=== PATIENT | female | born 1980 | race Caucasian/White ===

== ENCOUNTER 2016-07-31 08:01 | Inpatient (IN) | payer MEDICAID ==
[~2016-07-31] VITALS: Ht 165.1 cm; Wt 100.9 kg
[~2016-07-31 08:01] MED LIST: ESMOLOL 100 MG/10 ML VL IV ONE; LIDOCAINE 2% SYR 5 ML IV ONE; PROPOFOL 50ML PER ML IV ONE
[2016-07-31] MEDS ORDERED: METHYLPRED SOD SUCC 125 MG/2 ML VIAL ONE (08:26)
[2016-07-31] MEDS ORDERED: DUONEB INH ONE ×4 (08:32→10:23)
[2016-07-31] MEDS ORDERED: ACETAMINOPHEN 325 MG TAB ONE (10:10)
[2016-07-31] MEDS ORDERED: SODIUM CHLORIDE 0.9% 1,000 ML ONE ×2 (10:22→10:43)
[2016-07-31] MEDS ORDERED: PIPERACIL/TAZO 4.5GM/100ML 100 ML IV ONE (10:45)
[2016-07-31] MEDS ORDERED: VANCOMYCIN 2,000 MG in SODIUM CHLORIDE 0.9% 500 ML IV ONE (10:45)
[2016-07-31] MEDS ORDERED: SALINE FLUSH 10 ML FLUSH PRN (10:50)
[2016-07-31] MEDS ORDERED: SODIUM CHLORIDE 0.9% 1,000 ML IV ONE ×3 (10:50→16:00)
[2016-07-31 12:30] VITALS: BP_SYST 110; BP_SYST 120; RESP 20; TEMP 98.1; Ht 165.1 cm; Wt 100.9 kg
[2016-07-31] MEDS ORDERED: MISSING DOSE XX ONE (12:30)
[2016-07-31] MEDS ORDERED: PNEUMO VAC 25 MCG/0.5 ML VL IM.VACC ONE (13:10)
[2016-07-31] MEDS ORDERED: Flu Vaccine Quadrivalent 60 MCG/0.5 ML IM.VACC ONE (13:10)
[2016-07-31] MEDS: Ibuprofen 400 MG TAB PO PRN (14:38)
[2016-07-31] MEDS: SODIUM CHLORIDE 0.9% FLUSH BAG 500 ML IV SCH (14:39)
[2016-07-31] MEDS: DUONEB INH SCH ×3 (15:01→22:38)
[2016-07-31 15:03] VITALS: RESP 20
[2016-07-31 15:44] VITALS: BP_SYST 132; RESP 18; TEMP 97.1
[2016-07-31] MEDS: ONDANSETRON 4 MG VIAL IV PUSH PRN ×2 (16:03→23:05)
[2016-07-31] MEDS: METHYLPRED SOD SUCC 40 MG VIAL IV SCH ×2 (16:03→23:40)
[2016-07-31] MEDS ORDERED: PHARMACY TO DOSE VANCOMYCIN IV SCH (20:10)
[2016-07-31] MEDS ORDERED: PHARMACY TO DOSE CEFEPIME IV SCH (20:10)
[2016-07-31] MEDS: NEB-BUDESONIDE 0.5 MG INH SCH (20:37)
[2016-07-31] MEDS ORDERED: VANCOMYCIN 1,500 MG in SODIUM CHLORIDE 0.9% 250 ML IV SCH (21:00)
[2016-07-31] MEDS: QUEtiapine 200 MG TAB PO SCH (21:06)
[2016-07-31] MEDS: PAROXETINE HCL 20 MG TAB PO SCH (21:06)
[2016-07-31] MEDS: lamoTRIgine 100 MG TAB PO SCH (21:06)
[2016-07-31] MEDS: PREGABALIN 75 MG CAP PO SCH (21:06)
[2016-07-31] MEDS: SALINE FLUSH 10 ML FLUSH SCH (21:08)
[2016-07-31 21:20] VITALS: BP_SYST 110; RESP 18; TEMP 97
[2016-07-31] MEDS: ACETAMINOPHEN 325 MG TAB PO PRN (22:10)
[2016-07-31] MEDS: CEFEPIME 2000 MG/100 ML D5W 100 ML IV SCH (23:40)
[2016-08-01] VITALS (7 sets, daily range): BP systolic 112–130; RESP 20–22; TEMP 96–97.3
[2016-08-01] MEDS: VANCOMYCIN 1,500 MG in SODIUM CHLORIDE 0.9% 250 ML IV SCH ×3 (02:00→19:15)
[2016-08-01] MEDS: DUONEB INH SCH ×6 (02:28→23:31)
[2016-08-01] MEDS: NEB-BROVANA 15 MCG/2 ML INH SCH ×2 (06:31→18:29)
[2016-08-01] MEDS: NEB-BUDESONIDE 0.5 MG INH SCH ×2 (06:31→18:29)
[2016-08-01] MEDS: CEFEPIME 2000 MG/100 ML D5W 100 ML IV SCH ×3 (07:56→23:00)
[2016-08-01] MEDS: SALINE FLUSH 10 ML FLUSH SCH ×2 (07:57→20:37)
[2016-08-01] MEDS ORDERED: MISSING DOSE XX ONE ×2 (08:00→18:25)
[2016-08-01] MEDS: PREGABALIN 75 MG CAP PO SCH ×2 (08:42→20:36)
[2016-08-01] MEDS: ENOXAPARIN 40 MG/0.4 ML SYR SUBQ SCH (08:42)
[2016-08-01] MEDS: METHYLPRED SOD SUCC 40 MG VIAL IV SCH ×3 (08:42→23:01)
[2016-08-01] MEDS: lamoTRIgine 100 MG TAB PO SCH ×2 (08:42→20:37)
[2016-08-01] MEDS: Ibuprofen 400 MG TAB PO PRN ×2 (08:54→19:15)
[2016-08-01] MEDS: ONDANSETRON 4 MG VIAL IV PUSH PRN ×3 (08:54→22:27)
[2016-08-01] MEDS ORDERED: CAFFEINE CITRATE 20 MG/ML PO PRN (11:15)
[2016-08-01] MEDS: EXCEDRIN EXTRA STR TAB PO PRN ×2 (12:37→21:04)
[2016-08-01] MEDS: NICOTINE 21 MG/24 HR TRANSDERM PRN (15:56)
[2016-08-01] MEDS: ACETAMINOPHEN 325 MG TAB PO PRN (18:04)
[2016-08-01] MEDS: QUEtiapine 200 MG TAB PO SCH (20:36)
[2016-08-01] MEDS: PAROXETINE HCL 20 MG TAB PO SCH (20:37)
[2016-08-01] MEDS: AMITRIPTYLINE 50 MG TAB PO SCH (21:04)
[2016-08-01] MEDS: SODIUM CHLORIDE 0.9% 1,000 ML IV SCH (23:01)
[2016-08-02] MEDS: VANCOMYCIN 1,500 MG in SODIUM CHLORIDE 0.9% 250 ML IV SCH ×3 (00:05→18:16)
[2016-08-02] MEDS ORDERED: MISSING DOSE XX ONE (00:10)
[2016-08-02] MEDS: SUCRALFATE 1GM/10ML SUSP PO PRN ×2 (00:38→10:20)
[2016-08-02] MEDS: DUONEB INH SCH ×6 (02:21→22:38)
[2016-08-02 03:00] VITALS: BP_SYST 138; RESP 22; TEMP 96.9
[2016-08-02] MEDS: SODIUM CHLORIDE 0.9% FLUSH BAG 500 ML IV SCH (05:01)
[2016-08-02] MEDS: EXCEDRIN EXTRA STR TAB PO PRN (05:09)
[2016-08-02] MEDS: NEB-BUDESONIDE 0.5 MG INH SCH ×2 (05:24→18:33)
[2016-08-02] MEDS: NEB-BROVANA 15 MCG/2 ML INH SCH ×2 (05:24→18:33)
[2016-08-02] MEDS: ONDANSETRON 4 MG VIAL IV PUSH PRN ×2 (07:20→18:17)
[2016-08-02] MEDS: SALINE FLUSH 10 ML FLUSH SCH ×2 (08:00→20:13)
[2016-08-02 08:25] VITALS: BP_SYST 130; RESP 22; TEMP 97.3
[2016-08-02] MEDS: MELOXICAM 7.5 MG TAB PO SCH (09:18)
[2016-08-02] MEDS: lamoTRIgine 100 MG TAB PO SCH ×2 (09:18→20:11)
[2016-08-02] MEDS: PREGABALIN 75 MG CAP PO SCH ×2 (09:18→20:12)
[2016-08-02] MEDS: BUPROPION XL 150 MG TAB PO SCH (09:18)
[2016-08-02] MEDS: METHYLPRED SOD SUCC 40 MG VIAL IV SCH ×2 (09:18→16:36)
[2016-08-02] MEDS: CEFEPIME 2000 MG/100 ML D5W 100 ML IV SCH ×2 (09:19→16:36)
[2016-08-02] MEDS: PANTOPRAZOLE 40 MG VIAL IV SCH (09:19)
[2016-08-02] MEDS: ENOXAPARIN 40 MG/0.4 ML SYR SUBQ SCH (09:19)
[2016-08-02] MEDS: ACETAMINOPHEN 325 MG TAB PO PRN ×2 (10:20→20:12)
[2016-08-02 11:59] VITALS: BP_SYST 132; RESP 20; TEMP 96.8
[2016-08-02] MEDS: SODIUM CHLORIDE 0.9% 1,000 ML IV SCH (12:37)
[2016-08-02] MEDS: NYSTATIN 500,000 UNITS/5 ML SUSP SWISH.SWAL SCH ×2 (16:34→20:11)
[2016-08-02 16:49] VITALS: BP_SYST 126; RESP 20; TEMP 97.1
[2016-08-02] MEDS ORDERED: BENZONATATE 100 MG CAP PO PRN (17:45)
[2016-08-02] MEDS ORDERED: NEB-ALBUTEROL 2.5 MG/3 ML INH PRN (18:00)
[2016-08-02] MEDS: FLUCONAZOLE 100 MG TAB PO SCH (18:17)
[2016-08-02] MEDS: Ibuprofen 400 MG TAB PO PRN (18:17)
[2016-08-02] MEDS: AMITRIPTYLINE 50 MG TAB PO SCH (20:11)
[2016-08-02] MEDS: QUEtiapine 200 MG TAB PO SCH (20:13)
[2016-08-02] MEDS: PAROXETINE HCL 20 MG TAB PO SCH (20:13)
[2016-08-02 22:14] VITALS: BP_SYST 132; RESP 22; TEMP 97.4
[2016-08-03] MEDS: METHYLPRED SOD SUCC 40 MG VIAL IV SCH ×4 (00:23→23:23)
[2016-08-03] MEDS: CEFEPIME 2000 MG/100 ML D5W 100 ML IV SCH ×4 (00:23→23:23)
[2016-08-03] MEDS: SODIUM CHLORIDE 0.9% 1,000 ML IV SCH (00:26)
[2016-08-03 01:38] VITALS: BP_SYST 116; RESP 20; TEMP 97
[2016-08-03] MEDS: VANCOMYCIN 1,500 MG in SODIUM CHLORIDE 0.9% 250 ML IV SCH ×3 (02:53→18:00)
[2016-08-03] MEDS: DUONEB INH SCH ×6 (02:57→23:08)
[2016-08-03] MEDS: Ibuprofen 400 MG TAB PO PRN ×2 (05:19→17:02)
[2016-08-03] MEDS: ONDANSETRON 4 MG VIAL IV PUSH PRN ×2 (05:20→13:27)
[2016-08-03] MEDS: SODIUM CHLORIDE 0.9% FLUSH BAG 500 ML IV SCH (06:00)
[2016-08-03] MEDS: NEB-BROVANA 15 MCG/2 ML INH SCH ×2 (06:16→17:10)
[2016-08-03] MEDS: NEB-BUDESONIDE 0.5 MG INH SCH ×2 (06:16→17:11)
[2016-08-03 07:41] VITALS: BP_SYST 142; RESP 22; TEMP 95.7
[2016-08-03] MEDS: PANTOPRAZOLE 40 MG VIAL IV SCH (08:11)
[2016-08-03] MEDS: NYSTATIN 500,000 UNITS/5 ML SUSP SWISH.SWAL SCH ×4 (08:11→21:30)
[2016-08-03] MEDS: FLUCONAZOLE 100 MG TAB PO SCH (08:12)
[2016-08-03] MEDS: lamoTRIgine 100 MG TAB PO SCH ×2 (08:12→21:30)
[2016-08-03] MEDS: MELOXICAM 7.5 MG TAB PO SCH (08:12)
[2016-08-03] MEDS: PREGABALIN 75 MG CAP PO SCH ×2 (08:12→21:30)
[2016-08-03] MEDS: SALINE FLUSH 10 ML FLUSH SCH ×2 (08:12→20:00)
[2016-08-03] MEDS: ENOXAPARIN 40 MG/0.4 ML SYR SUBQ SCH (08:12)
[2016-08-03] MEDS: BUPROPION XL 150 MG TAB PO SCH (08:12)
[2016-08-03] MEDS ORDERED: OMNIPAQUE 240 MG/ML, 50 ML PO ONE ×2 (09:45)
[2016-08-03] MEDS: OMNIPAQUE 350 50ML PO ONE (10:45)
[2016-08-03 11:37] VITALS: BP_SYST 138; RESP 24; TEMP 97
[2016-08-03] MEDS ORDERED: MISSING DOSE XX ONE ×2 (14:45→18:30)
[2016-08-03] MEDS: NICOTINE 21 MG/24 HR TRANSDERM PRN (15:12)
[2016-08-03 15:46] VITALS: BP_SYST 122; RESP 22; TEMP 97.1
[2016-08-03] MEDS: ACETAMINOPHEN 325 MG TAB PO PRN (17:01)
[2016-08-03 20:51] VITALS: BP_SYST 118; RESP 22; TEMP 97.6
[2016-08-03] MEDS: PAROXETINE HCL 20 MG TAB PO SCH (21:30)
[2016-08-03] MEDS: AMITRIPTYLINE 50 MG TAB PO SCH (21:30)
[2016-08-03] MEDS: QUEtiapine 200 MG TAB PO SCH (21:30)
[2016-08-03] MEDS: PANTOPRAZOLE 40 MG TAB PO SCH (21:30)
[2016-08-03] MEDS: ONDANSETRON ODT 4 MG TAB PO PRN (22:07)
[2016-08-03 23:51] VITALS: BP_SYST 118; RESP 22; TEMP 97.6
[2016-08-04] VITALS (7 sets, daily range): BP systolic 124–148; RESP 18–24; TEMP 96.5–98.1
[2016-08-04] MEDS ORDERED: PREDNISONE 20 MG TAB PO ONE
[2016-08-04] MEDS ORDERED: LEVOFLOXACIN 500 MG TAB PO ONE
[2016-08-04] MEDS: DUONEB INH SCH ×6 (03:00→22:55)
[2016-08-04] MEDS: ACETAMINOPHEN 325 MG TAB PO PRN ×3 (04:26→21:09)
[2016-08-04] MEDS: SODIUM CHLORIDE 0.9% FLUSH BAG 500 ML IV SCH (05:24)
[2016-08-04] MEDS: ONDANSETRON ODT 4 MG TAB PO PRN (06:41)
[2016-08-04] MEDS: NEB-BUDESONIDE 0.5 MG INH SCH ×2 (07:22→19:06)
[2016-08-04] MEDS: NEB-BROVANA 15 MCG/2 ML INH SCH ×2 (07:22→19:06)
[2016-08-04] MEDS: NYSTATIN 500,000 UNITS/5 ML SUSP SWISH.SWAL SCH ×4 (08:32→20:55)
[2016-08-04] MEDS: MELOXICAM 7.5 MG TAB PO SCH (08:32)
[2016-08-04] MEDS: PREGABALIN 75 MG CAP PO SCH ×2 (08:32→20:55)
[2016-08-04] MEDS: BUPROPION XL 150 MG TAB PO SCH (08:32)
[2016-08-04] MEDS: ENOXAPARIN 40 MG/0.4 ML SYR SUBQ SCH (08:32)
[2016-08-04] MEDS: FLUCONAZOLE 100 MG TAB PO SCH (08:32)
[2016-08-04] MEDS: lamoTRIgine 100 MG TAB PO SCH ×2 (08:32→20:56)
[2016-08-04] MEDS ORDERED: VANCOMYCIN 1,500 MG in SODIUM CHLORIDE 0.9% 250 ML IV ONE (10:15)
[2016-08-04] MEDS ORDERED: OMNIPAQUE 240 MG/ML, 50 ML PO ONE ×2 (10:35→11:40)
[2016-08-04] MEDS: METHYLPRED SOD SUCC 40 MG VIAL IV SCH ×3 (10:39→20:56)
[2016-08-04] MEDS: CEFEPIME 2000 MG/100 ML D5W 100 ML IV SCH ×2 (10:39→15:16)
[2016-08-04] MEDS: SALINE FLUSH 10 ML FLUSH SCH ×2 (10:40→20:57)
[2016-08-04] MEDS: SODIUM CHLORIDE 0.9% 1,000 ML IV SCH ×2 (10:41→18:41)
[2016-08-04] MEDS: Ibuprofen 400 MG TAB PO PRN ×2 (12:26→21:09)
[2016-08-04] MEDS ORDERED: MISSING DOSE XX ONE (15:10)
[2016-08-04] MEDS: ONDANSETRON 4 MG VIAL IV PRN ×2 (15:16→21:10)
[2016-08-04] MEDS: NICOTINE 21 MG/24 HR TRANSDERM PRN (15:33)
[2016-08-04] MEDS ORDERED: VANCOMYCIN 1,500 MG in SODIUM CHLORIDE 0.9% 250 ML IV SCH (17:00)
[2016-08-04] MEDS ORDERED: OPTIRAY 350 100 ML VIAL HMH IV ONE (18:33)
[2016-08-04] MEDS: PAROXETINE HCL 20 MG TAB PO SCH (20:56)
[2016-08-04] MEDS: QUEtiapine 200 MG TAB PO SCH (20:56)
[2016-08-04] MEDS: AMITRIPTYLINE 50 MG TAB PO SCH (20:56)
[2016-08-04] MEDS: PANTOPRAZOLE 40 MG TAB PO SCH (20:56)
[2016-08-04] MEDS: VANCOMYCIN 1,250 MG in SODIUM CHLORIDE 0.9% 250 ML IV SCH (23:36)
[2016-08-05] MEDS: CEFEPIME 2000 MG/100 ML D5W 100 ML IV SCH ×3 (01:22→16:02)
[2016-08-05] MEDS: DUONEB INH SCH ×6 (02:36→23:13)
[2016-08-05] MEDS: ACETAMINOPHEN 325 MG TAB PO PRN ×3 (04:09→17:27)
[2016-08-05 04:48] VITALS: BP_SYST 142; RESP 20; TEMP 97.4
[2016-08-05] MEDS: SODIUM CHLORIDE 0.9% 1,000 ML IV SCH (05:36)
[2016-08-05] MEDS: SODIUM CHLORIDE 0.9% FLUSH BAG 500 ML IV SCH ×2 (05:53)
[2016-08-05] MEDS: VANCOMYCIN 1,250 MG in SODIUM CHLORIDE 0.9% 250 ML IV SCH ×3 (06:48→23:32)
[2016-08-05] MEDS: NEB-BUDESONIDE 0.5 MG INH SCH ×2 (06:53→17:15)
[2016-08-05] MEDS: NEB-BROVANA 15 MCG/2 ML INH SCH ×2 (06:53→17:14)
[2016-08-05] MEDS ORDERED: PANTOPRAZOLE 40 MG TAB PO SCH (07:00)
[2016-08-05 07:54] VITALS: BP_SYST 162; RESP 18; TEMP 96.7
[2016-08-05] MEDS: BUPROPION XL 150 MG TAB PO SCH (08:43)
[2016-08-05] MEDS: lamoTRIgine 100 MG TAB PO SCH ×2 (08:43→20:30)
[2016-08-05] MEDS: MELOXICAM 7.5 MG TAB PO SCH (08:43)
[2016-08-05] MEDS: PREGABALIN 75 MG CAP PO SCH ×2 (08:44→20:30)
[2016-08-05] MEDS: NICOTINE 21 MG/24 HR TRANSDERM SCH (08:44)
[2016-08-05] MEDS: NYSTATIN 500,000 UNITS/5 ML SUSP SWISH.SWAL SCH ×4 (08:45→20:29)
[2016-08-05] MEDS: SALINE FLUSH 10 ML FLUSH SCH ×2 (08:45→20:31)
[2016-08-05] MEDS: ONDANSETRON 4 MG VIAL IV PRN ×3 (08:46→20:29)
[2016-08-05] MEDS: ENOXAPARIN 40 MG/0.4 ML SYR SUBQ SCH (08:46)
[2016-08-05] MEDS: METHYLPRED SOD SUCC 40 MG VIAL IV SCH ×2 (08:46→20:29)
[2016-08-05] MEDS ORDERED: BISACODYL EC 5 MG TAB PO ONE (11:40)
[2016-08-05 11:55] VITALS: BP_SYST 154; RESP 18; TEMP 97.3
[2016-08-05] MEDS: POLYETHYLENE GLYCOL 17 GM PACKET PO SCH (12:15)
[2016-08-05 15:10] VITALS: BP_SYST 142; RESP 18; TEMP 96.2
[2016-08-05] MEDS ORDERED: MISSING DOSE XX ONE (18:35)
[2016-08-05 19:22] VITALS: BP_SYST 150; RESP 18; TEMP 97.3
[2016-08-05] MEDS: NICOTINE 2 MG GUM PO PRN (20:29)
[2016-08-05] MEDS: PANTOPRAZOLE 40 MG TAB PO SCH (20:30)
[2016-08-05] MEDS: QUEtiapine 200 MG TAB PO SCH (20:30)
[2016-08-05] MEDS: AMITRIPTYLINE 50 MG TAB PO SCH (20:30)
[2016-08-05] MEDS: PAROXETINE HCL 20 MG TAB PO SCH (20:30)
[2016-08-05 23:40] VITALS: BP_SYST 134; RESP 18; TEMP 97.4
[2016-08-06] MEDS: CEFEPIME 2000 MG/100 ML D5W 100 ML IV SCH ×3 (01:48→16:09)
[2016-08-06] MEDS: ACETAMINOPHEN 325 MG TAB PO PRN ×4 (01:49→20:06)
[2016-08-06] MEDS: ONDANSETRON 4 MG VIAL IV PRN ×4 (01:49→20:05)
[2016-08-06] MEDS: DUONEB INH SCH ×6 (02:36→22:50)
[2016-08-06] MEDS: NICOTINE 2 MG GUM PO PRN ×4 (03:54→19:35)
[2016-08-06 04:51] VITALS: BP_SYST 135; RESP 22; TEMP 97.7
[2016-08-06] MEDS: SODIUM CHLORIDE 0.9% FLUSH BAG 500 ML IV SCH ×2 (06:00→06:17)
[2016-08-06] MEDS: NEB-BROVANA 15 MCG/2 ML INH SCH ×2 (07:15→19:31)
[2016-08-06] MEDS: NEB-BUDESONIDE 0.5 MG INH SCH ×2 (07:15→19:31)
[2016-08-06] MEDS: SALINE FLUSH 10 ML FLUSH SCH ×2 (07:48→20:05)
[2016-08-06 08:05] VITALS: BP_SYST 144; RESP 18; TEMP 97.5
[2016-08-06] MEDS: POLYETHYLENE GLYCOL 17 GM PACKET PO SCH (08:39)
[2016-08-06] MEDS: NYSTATIN 500,000 UNITS/5 ML SUSP SWISH.SWAL SCH ×4 (08:39→20:05)
[2016-08-06] MEDS: lamoTRIgine 100 MG TAB PO SCH ×2 (08:40→20:05)
[2016-08-06] MEDS: MELOXICAM 7.5 MG TAB PO SCH (08:40)
[2016-08-06] MEDS: NICOTINE 21 MG/24 HR TRANSDERM SCH (08:40)
[2016-08-06] MEDS: BUPROPION XL 150 MG TAB PO SCH (08:40)
[2016-08-06] MEDS: PREGABALIN 75 MG CAP PO SCH ×2 (08:41→20:06)
[2016-08-06] MEDS: Furosemide 20 MG/2 ML VIAL IV SCH (08:41)
[2016-08-06] MEDS: METHYLPRED SOD SUCC 40 MG VIAL IV SCH (08:41)
[2016-08-06] MEDS: ENOXAPARIN 40 MG/0.4 ML SYR SUBQ SCH (08:42)
[2016-08-06] MEDS: VANCOMYCIN 1,250 MG in SODIUM CHLORIDE 0.9% 250 ML IV SCH ×3 (08:42→22:19)
[2016-08-06 13:54] VITALS: BP_SYST 140; RESP 18; TEMP 97.8
[2016-08-06 17:08] VITALS: BP_SYST 138; RESP 18
[2016-08-06] MEDS: AMITRIPTYLINE 50 MG TAB PO SCH (20:05)
[2016-08-06] MEDS: QUEtiapine 200 MG TAB PO SCH (20:06)
[2016-08-06] MEDS: PAROXETINE HCL 20 MG TAB PO SCH (20:06)
[2016-08-06] MEDS: PANTOPRAZOLE 40 MG TAB PO SCH (20:06)
[2016-08-06 20:20] VITALS: BP_SYST 146; RESP 20; TEMP 97.1
[2016-08-06 23:41] VITALS: BP_SYST 132; RESP 20; TEMP 97.6
[2016-08-07] VITALS (15 sets, daily range): BP systolic 110–148; RESP 16–24; TEMP 96.8–98.4
[2016-08-07] MEDS: CEFEPIME 2000 MG/100 ML D5W 100 ML IV SCH ×3 (00:05→17:38)
[2016-08-07] MEDS: DUONEB INH SCH ×6 (02:55→23:18)
[2016-08-07] MEDS: ONDANSETRON 4 MG VIAL IV PRN ×5 (04:54→21:45)
[2016-08-07] MEDS: NICOTINE 2 MG GUM PO PRN ×2 (04:54→20:24)
[2016-08-07] MEDS: ACETAMINOPHEN 325 MG TAB PO PRN ×3 (04:55→20:25)
[2016-08-07] MEDS: SODIUM CHLORIDE 0.9% FLUSH BAG 500 ML IV SCH ×2 (05:03)
[2016-08-07] MEDS: VANCOMYCIN 1,250 MG in SODIUM CHLORIDE 0.9% 250 ML IV SCH ×3 (06:10→23:06)
[2016-08-07] MEDS: NEB-BUDESONIDE 0.5 MG INH SCH ×2 (07:00→19:11)
[2016-08-07] MEDS: NEB-BROVANA 15 MCG/2 ML INH SCH ×2 (07:00→19:11)
[2016-08-07] MEDS: SALINE FLUSH 10 ML FLUSH SCH ×2 (08:05→20:25)
[2016-08-07] MEDS: Furosemide 20 MG/2 ML VIAL IV SCH (08:06)
[2016-08-07] MEDS: POLYETHYLENE GLYCOL 17 GM PACKET PO SCH (09:00)
[2016-08-07] MEDS: NYSTATIN 500,000 UNITS/5 ML SUSP SWISH.SWAL SCH ×4 (09:00→20:24)
[2016-08-07] MEDS ORDERED: SODIUM CHLORIDE 0.9% 500 ML IV SCH (13:20)
[2016-08-07] MEDS ORDERED: KETOROLAC 30 MG/ML VIAL IM ONE (14:25)
[2016-08-07] MEDS: NICOTINE 21 MG/24 HR TRANSDERM SCH (15:01)
[2016-08-07] MEDS: ENOXAPARIN 40 MG/0.4 ML SYR SUBQ SCH (15:02)
[2016-08-07] MEDS: lamoTRIgine 100 MG TAB PO SCH ×2 (15:04→20:25)
[2016-08-07] MEDS: PREGABALIN 75 MG CAP PO SCH ×2 (15:04→20:24)
[2016-08-07] MEDS: PREDNISONE 20 MG TAB PO SCH (15:04)
[2016-08-07] MEDS: MELOXICAM 7.5 MG TAB PO SCH (15:04)
[2016-08-07] MEDS: BUPROPION XL 150 MG TAB PO SCH (15:04)
[2016-08-07] MEDS: QUEtiapine 200 MG TAB PO SCH (20:24)
[2016-08-07] MEDS: PANTOPRAZOLE 40 MG TAB PO SCH (20:24)
[2016-08-07] MEDS: AMITRIPTYLINE 50 MG TAB PO SCH (20:24)
[2016-08-07] MEDS: PAROXETINE HCL 20 MG TAB PO SCH (20:25)
[2016-08-08] MEDS: CEFEPIME 2000 MG/100 ML D5W 100 ML IV SCH ×3 (02:08→16:23)
[2016-08-08 02:51] VITALS: BP_SYST 150; RESP 18; TEMP 97
[2016-08-08] MEDS: DUONEB INH SCH ×6 (03:00→23:23)
[2016-08-08] MEDS: SODIUM CHLORIDE 0.9% FLUSH BAG 500 ML IV SCH ×2 (05:02)
[2016-08-08] MEDS: VANCOMYCIN 1,250 MG in SODIUM CHLORIDE 0.9% 250 ML IV SCH ×3 (06:04→23:13)
[2016-08-08] MEDS: ACETAMINOPHEN 325 MG TAB PO PRN ×5 (06:05→19:29)
[2016-08-08 07:25] VITALS: BP_SYST 150; RESP 18; TEMP 97.1
[2016-08-08] MEDS: NEB-BROVANA 15 MCG/2 ML INH SCH ×2 (07:34→19:38)
[2016-08-08] MEDS: NEB-BUDESONIDE 0.5 MG INH SCH ×2 (07:34→19:38)
[2016-08-08] MEDS: BUPROPION XL 150 MG TAB PO SCH (08:00)
[2016-08-08] MEDS: lamoTRIgine 100 MG TAB PO SCH ×2 (08:00→20:52)
[2016-08-08] MEDS: PREDNISONE 20 MG TAB PO SCH (08:00)
[2016-08-08] MEDS: PREGABALIN 75 MG CAP PO SCH ×2 (08:00→20:52)
[2016-08-08] MEDS: NYSTATIN 500,000 UNITS/5 ML SUSP SWISH.SWAL SCH ×4 (08:00→20:50)
[2016-08-08] MEDS: NICOTINE 2 MG GUM PO PRN ×3 (08:00→19:28)
[2016-08-08] MEDS: MELOXICAM 7.5 MG TAB PO SCH (08:00)
[2016-08-08] MEDS: Furosemide 20 MG/2 ML VIAL IV SCH (08:00)
[2016-08-08] MEDS: ONDANSETRON 4 MG VIAL IV PRN ×3 (08:02→18:10)
[2016-08-08] MEDS: SALINE FLUSH 10 ML FLUSH SCH (08:02)
[2016-08-08] MEDS: ENOXAPARIN 40 MG/0.4 ML SYR SUBQ SCH (08:02)
[2016-08-08] MEDS: POLYETHYLENE GLYCOL 17 GM PACKET PO SCH (08:04)
[2016-08-08] MEDS: NICOTINE 21 MG/24 HR TRANSDERM SCH (09:10)
[2016-08-08 11:24] VITALS: BP_SYST 164; RESP 18; TEMP 97.5
[2016-08-08 15:40] VITALS: BP_SYST 152; RESP 18; TEMP 97.6
[2016-08-08 20:44] VITALS: BP_SYST 120; RESP 18; TEMP 97.6
[2016-08-08] MEDS: AMITRIPTYLINE 50 MG TAB PO SCH (20:52)
[2016-08-08] MEDS: QUEtiapine 200 MG TAB PO SCH (20:52)
[2016-08-08] MEDS: PANTOPRAZOLE 40 MG TAB PO SCH (20:52)
[2016-08-08] MEDS: PAROXETINE HCL 20 MG TAB PO SCH (20:52)
[2016-08-08 23:54] VITALS: BP_SYST 130; RESP 18; TEMP 98.7
[2016-08-09] MEDS: SALINE FLUSH 10 ML FLUSH SCH ×3 (01:02→21:37)
[2016-08-09] MEDS: CEFEPIME 2000 MG/100 ML D5W 100 ML IV SCH ×3 (01:02→17:12)
[2016-08-09] MEDS: ACETAMINOPHEN 325 MG TAB PO PRN ×2 (02:58→07:26)
[2016-08-09] MEDS: DUONEB INH SCH ×6 (03:00→23:31)
[2016-08-09 03:35] VITALS: BP_SYST 110; RESP 16; TEMP 97.2
[2016-08-09] MEDS: SODIUM CHLORIDE 0.9% FLUSH BAG 500 ML IV SCH (06:59)
[2016-08-09] MEDS: NEB-BUDESONIDE 0.5 MG INH SCH ×2 (07:15→19:28)
[2016-08-09] MEDS: NEB-BROVANA 15 MCG/2 ML INH SCH ×2 (07:15→19:28)
[2016-08-09] MEDS: VANCOMYCIN 1,250 MG in SODIUM CHLORIDE 0.9% 250 ML IV SCH ×3 (07:27→23:08)
[2016-08-09 07:36] VITALS: BP_SYST 144; RESP 18; TEMP 96.7
[2016-08-09] MEDS ORDERED: MISSING DOSE XX ONE ×5 (07:55→14:35)
[2016-08-09] MEDS: lamoTRIgine 100 MG TAB PO SCH ×2 (08:48→21:38)
[2016-08-09] MEDS: BUPROPION XL 150 MG TAB PO SCH (08:48)
[2016-08-09] MEDS: PREGABALIN 75 MG CAP PO SCH ×2 (08:48→21:38)
[2016-08-09] MEDS: NICOTINE 2 MG GUM PO PRN ×2 (08:48→14:55)
[2016-08-09] MEDS: MELOXICAM 7.5 MG TAB PO SCH (08:48)
[2016-08-09] MEDS: PREDNISONE 10 MG TAB PO SCH (08:48)
[2016-08-09] MEDS: ONDANSETRON 4 MG VIAL IV PRN ×3 (08:49→22:16)
[2016-08-09] MEDS ORDERED: PREDNISONE 20 MG TAB PO SCH (09:00)
[2016-08-09] MEDS ORDERED: Furosemide 40 MG/4 ML VIAL IV SCH (09:00)
[2016-08-09] MEDS: POLYETHYLENE GLYCOL 17 GM PACKET PO SCH (09:44)
[2016-08-09] MEDS: NYSTATIN 500,000 UNITS/5 ML SUSP SWISH.SWAL SCH ×2 (09:44→14:35)
[2016-08-09] MEDS: NICOTINE 21 MG/24 HR TRANSDERM SCH (09:45)
[2016-08-09] MEDS: ENOXAPARIN 40 MG/0.4 ML SYR SUBQ SCH (09:47)
[2016-08-09 11:00] VITALS: BP_SYST 130; RESP 16; TEMP 97.2
[2016-08-09] MEDS ORDERED: KCL CR 10 MEQ CAP PO ONE (13:15)
[2016-08-09 15:31] VITALS: BP_SYST 132; RESP 16; TEMP 97.1
[2016-08-09] MEDS: Furosemide 40 MG/4 ML VIAL IV SCH (16:13)
[2016-08-09 21:09] VITALS: BP_SYST 130; RESP 18; TEMP 97.4
[2016-08-09] MEDS: QUEtiapine 200 MG TAB PO SCH (21:38)
[2016-08-09] MEDS: PANTOPRAZOLE 40 MG TAB PO SCH (21:38)
[2016-08-09] MEDS: AMITRIPTYLINE 50 MG TAB PO SCH (21:38)
[2016-08-09] MEDS: PAROXETINE HCL 20 MG TAB PO SCH (21:38)
[2016-08-09 23:48] VITALS: BP_SYST 138; RESP 16; TEMP 98.4
[2016-08-10] MEDS: CEFEPIME 2000 MG/100 ML D5W 100 ML IV SCH ×3 (01:04→16:10)
[2016-08-10] MEDS: DUONEB INH SCH ×6 (03:00→22:59)
[2016-08-10 03:15] VITALS: BP_SYST 226; RESP 18; TEMP 97.1
[2016-08-10] MEDS: SODIUM CHLORIDE 0.9% FLUSH BAG 500 ML IV SCH (05:45)
[2016-08-10] MEDS: ONDANSETRON 4 MG VIAL IV PRN ×4 (06:42→21:26)
[2016-08-10] MEDS: VANCOMYCIN 1,250 MG in SODIUM CHLORIDE 0.9% 250 ML IV SCH ×3 (06:43→23:02)
[2016-08-10] MEDS: NEB-BROVANA 15 MCG/2 ML INH SCH ×2 (07:33→18:37)
[2016-08-10] MEDS: NEB-BUDESONIDE 0.5 MG INH SCH ×2 (07:33→18:37)
[2016-08-10 07:56] VITALS: BP_SYST 146; RESP 16; TEMP 97.1
[2016-08-10] MEDS ORDERED: MISSING DOSE XX ONE (08:10)
[2016-08-10] MEDS: Furosemide 40 MG/4 ML VIAL IV SCH ×2 (08:55→16:43)
[2016-08-10] MEDS: POLYETHYLENE GLYCOL 17 GM PACKET PO SCH (08:56)
[2016-08-10] MEDS: BUPROPION XL 150 MG TAB PO SCH (08:56)
[2016-08-10] MEDS: NICOTINE 21 MG/24 HR TRANSDERM SCH (08:56)
[2016-08-10] MEDS: MELOXICAM 7.5 MG TAB PO SCH (08:56)
[2016-08-10] MEDS: ENOXAPARIN 40 MG/0.4 ML SYR SUBQ SCH (08:56)
[2016-08-10] MEDS: PREDNISONE 10 MG TAB PO SCH (08:57)
[2016-08-10] MEDS: lamoTRIgine 100 MG TAB PO SCH ×2 (08:57→21:26)
[2016-08-10] MEDS: PREGABALIN 75 MG CAP PO SCH ×2 (08:57→21:26)
[2016-08-10] MEDS: SALINE FLUSH 10 ML FLUSH SCH ×2 (08:58→21:25)
[2016-08-10] MEDS: NICOTINE 2 MG GUM PO PRN ×4 (10:48→21:26)
[2016-08-10 11:49] VITALS: BP_SYST 124; RESP 16; TEMP 97.4
[2016-08-10] MEDS: ACETAMINOPHEN 325 MG TAB PO PRN ×2 (13:17→17:53)
[2016-08-10 17:18] VITALS: BP_SYST 138; RESP 16; TEMP 97.4
[2016-08-10 19:15] VITALS: BP_SYST 118; RESP 18; TEMP 97.1
[2016-08-10] MEDS: PAROXETINE HCL 20 MG TAB PO SCH (21:25)
[2016-08-10] MEDS: AMITRIPTYLINE 50 MG TAB PO SCH (21:26)
[2016-08-10] MEDS: QUEtiapine 200 MG TAB PO SCH (21:26)
[2016-08-10] MEDS: PANTOPRAZOLE 40 MG TAB PO SCH (21:26)
[2016-08-10 23:49] VITALS: BP_SYST 122; RESP 18; TEMP 97.4
[2016-08-11] MEDS: CEFEPIME 2000 MG/100 ML D5W 100 ML IV SCH ×3 (00:44→16:12)
[2016-08-11] MEDS: ACETAMINOPHEN 325 MG TAB PO PRN ×4 (00:47→23:20)
[2016-08-11] MEDS: DUONEB INH SCH ×6 (02:19→23:09)
[2016-08-11 04:25] VITALS: BP_SYST 132; RESP 18; TEMP 98.4
[2016-08-11] MEDS: SODIUM CHLORIDE 0.9% FLUSH BAG 500 ML IV SCH (05:22)
[2016-08-11] MEDS: NEB-BUDESONIDE 0.5 MG INH SCH ×2 (06:12→19:31)
[2016-08-11] MEDS: NEB-BROVANA 15 MCG/2 ML INH SCH ×2 (06:12→19:31)
[2016-08-11] MEDS: VANCOMYCIN 1,250 MG in SODIUM CHLORIDE 0.9% 250 ML IV SCH ×3 (06:49→23:18)
[2016-08-11 07:57] VITALS: BP_SYST 144; RESP 18; TEMP 97.1
[2016-08-11] MEDS: NICOTINE 21 MG/24 HR TRANSDERM SCH (08:19)
[2016-08-11] MEDS: PREDNISONE 10 MG TAB PO SCH (08:19)
[2016-08-11] MEDS: NICOTINE 2 MG GUM PO PRN ×5 (08:19→23:29)
[2016-08-11] MEDS: SALINE FLUSH 10 ML FLUSH SCH ×2 (08:19→20:33)
[2016-08-11] MEDS: BUPROPION XL 150 MG TAB PO SCH (08:20)
[2016-08-11] MEDS: lamoTRIgine 100 MG TAB PO SCH ×2 (08:20→20:21)
[2016-08-11] MEDS: ONDANSETRON 4 MG VIAL IV PRN ×4 (08:20→23:20)
[2016-08-11] MEDS: Furosemide 40 MG/4 ML VIAL IV SCH ×2 (08:21→16:13)
[2016-08-11] MEDS: POLYETHYLENE GLYCOL 17 GM PACKET PO SCH (08:21)
[2016-08-11] MEDS: ENOXAPARIN 40 MG/0.4 ML SYR SUBQ SCH (08:21)
[2016-08-11] MEDS: PREGABALIN 75 MG CAP PO SCH ×2 (08:21→20:19)
[2016-08-11] MEDS: MELOXICAM 7.5 MG TAB PO SCH (08:21)
[2016-08-11 12:00] VITALS: BP_SYST 136; RESP 18; TEMP 97.3
[2016-08-11 16:34] VITALS: BP_SYST 122; RESP 16; TEMP 97.1
[2016-08-11] MEDS: QUEtiapine 200 MG TAB PO SCH (20:20)
[2016-08-11] MEDS: PANTOPRAZOLE 40 MG TAB PO SCH (20:20)
[2016-08-11] MEDS: AMITRIPTYLINE 50 MG TAB PO SCH (20:21)
[2016-08-11] MEDS: PAROXETINE HCL 20 MG TAB PO SCH (20:21)
[2016-08-11 21:38] VITALS: BP_SYST 124; RESP 18; TEMP 96.7
[2016-08-12 00:18] VITALS: BP_SYST 98; RESP 16; TEMP 98.8
[2016-08-12] MEDS: CEFEPIME 2000 MG/100 ML D5W 100 ML IV SCH ×2 (00:35→09:10)
[2016-08-12] MEDS: DUONEB INH SCH ×3 (02:45→10:27)
[2016-08-12 03:15] VITALS: BP_SYST 90; RESP 16; TEMP 97.5
[2016-08-12] MEDS: SODIUM CHLORIDE 0.9% FLUSH BAG 500 ML IV SCH (05:31)
[2016-08-12] MEDS: VANCOMYCIN 1,250 MG in SODIUM CHLORIDE 0.9% 250 ML IV SCH (06:39)
[2016-08-12] MEDS: NEB-BUDESONIDE 0.5 MG INH SCH (06:59)
[2016-08-12] MEDS: NEB-BROVANA 15 MCG/2 ML INH SCH (06:59)
[2016-08-12] MEDS: NICOTINE 2 MG GUM PO PRN ×2 (07:47→12:04)
[2016-08-12 07:49] VITALS: BP_SYST 120; RESP 18; TEMP 96.8
[2016-08-12] MEDS: SALINE FLUSH 10 ML FLUSH SCH (08:00)
[2016-08-12] MEDS: POLYETHYLENE GLYCOL 17 GM PACKET PO SCH (09:00)
[2016-08-12] MEDS ORDERED: MISSING DOSE XX ONE (09:05)
[2016-08-12] MEDS: lamoTRIgine 100 MG TAB PO SCH (09:12)
[2016-08-12] MEDS: PREGABALIN 75 MG CAP PO SCH (09:12)
[2016-08-12] MEDS: MELOXICAM 7.5 MG TAB PO SCH (09:12)
[2016-08-12] MEDS: BUPROPION XL 150 MG TAB PO SCH (09:12)
[2016-08-12] MEDS: NICOTINE 21 MG/24 HR TRANSDERM SCH (09:13)
[2016-08-12] MEDS: Furosemide 40 MG/4 ML VIAL IV SCH (09:13)
[2016-08-12] MEDS: ENOXAPARIN 40 MG/0.4 ML SYR SUBQ SCH (09:18)
[2016-08-12] MEDS: PREDNISONE 10 MG TAB PO SCH (09:41)
[2016-08-12] MEDS: ONDANSETRON 4 MG VIAL IV PRN (09:45)
[2016-08-12 11:08] VITALS: BP_SYST 126; RESP 18; TEMP 97.2
[2016-08-12 14:27] VITALS: BP_SYST 126; RESP 18; TEMP 97.2
[2016-08-12 14:56] VITALS: BP_SYST 132; RESP 18; TEMP 98
[2016-08-12] MEDS ORDERED: VANCOMYCIN 1,000 MG in SODIUM CHLORIDE 0.9% 250 ML IV SCH (23:00)
== END 2016-08-12 15:22 | disposition home or self-care (01) | DRG 871 ==
LOC: ENRESERVDT → ENRESERVTM → ER 08:01 → EMR 10:57 → ENPENDDIS 10:57 → 3NT 13:24
PROVIDERS: ADMIT Internal Medicine; ATTEND Internal Medicine
PROC: 02HV33Z Insertion of Infusion Device into Superior Vena Cava, Percutaneous Approach (ICD-10-PCS; 2016-08-04)
PROC: B548ZZA Ultrasonography of Superior Vena Cava, Guidance (ICD-10-PCS; 2016-08-04)
PROC: 0BBB8ZX Excision of Left Lower Lobe Bronchus, Via Natural or Artificial Opening Endoscopic, Diagnostic (ICD-10-PCS; 2016-08-07)
PROC: 0BB18ZX Excision of Trachea, Via Natural or Artificial Opening Endoscopic, Diagnostic (ICD-10-PCS; 2016-08-07)
PROC: 0BB48ZX Excision of Right Upper Lobe Bronchus, Via Natural or Artificial Opening Endoscopic, Diagnostic (ICD-10-PCS; 2016-08-07)
PROC: 0BB88ZX Excision of Left Upper Lobe Bronchus, Via Natural or Artificial Opening Endoscopic, Diagnostic (ICD-10-PCS; 2016-08-07)
PROC: 0BB58ZX Excision of Right Middle Lobe Bronchus, Via Natural or Artificial Opening Endoscopic, Diagnostic (ICD-10-PCS; 2016-08-07)
PROC: 0BB38ZX Excision of Right Main Bronchus, Via Natural or Artificial Opening Endoscopic, Diagnostic (ICD-10-PCS; 2016-08-07)
PROC: 0BB98ZX Excision of Lingula Bronchus, Via Natural or Artificial Opening Endoscopic, Diagnostic (ICD-10-PCS; 2016-08-07)
PROC: 0BB78ZX Excision of Left Main Bronchus, Via Natural or Artificial Opening Endoscopic, Diagnostic (ICD-10-PCS; 2016-08-07)
PROC: 0BB68ZX Excision of Right Lower Lobe Bronchus, Via Natural or Artificial Opening Endoscopic, Diagnostic (ICD-10-PCS; 2016-08-07)
PROC: 0BCB8ZZ Extirpation of Matter from Left Lower Lobe Bronchus, Via Natural or Artificial Opening Endoscopic (ICD-10-PCS; 2016-08-07)
PROC: 0BC68ZZ Extirpation of Matter from Right Lower Lobe Bronchus, Via Natural or Artificial Opening Endoscopic (ICD-10-PCS; 2016-08-07)
PROC: 0B9B8ZX Drainage of Left Lower Lobe Bronchus, Via Natural or Artificial Opening Endoscopic, Diagnostic (ICD-10-PCS; principal; 2016-08-07 11:20)
DX: A41.9 Sepsis, unspecified organism (principal); J96.01 Acute respiratory failure with hypoxia; I76 Septic arterial embolism; F11.20 Opioid dependence, uncomplicated; I38 Endocarditis, valve unspecified; J44.0 Chronic obstructive pulmonary disease with (acute) lower respiratory infection; J18.9 Pneumonia, unspecified organism; K40.90 Unilateral inguinal hernia, without obstruction or gangrene, not specified as recurrent; G40.909 Epilepsy, unspecified, not intractable, without status epilepticus; R12 Heartburn; F32.9 Major depressive disorder, single episode, unspecified; G89.29 Other chronic pain; R60.1 Generalized edema; E66.9 Obesity, unspecified; Z68.35 Body mass index [BMI] 35.0-35.9, adult; G62.9 Polyneuropathy, unspecified; R51 Headache; F17.210 Nicotine dependence, cigarettes, uncomplicated; E83.51 Hypocalcemia; R65.20 Severe sepsis without septic shock
CPT/HCPCS: 36415; 36569; 36600; 71010; 71260; 74177; 76937; 80048; 80053; 80202; 81025; 82553; 82803; 83605; 83880; 84145; 84484; 85025; 86701; 87040; 87071; 87102; 87116; 87205; 87206; 87278; 87299; 87385; 87496; 87529; 87798; 87804; 88104; 88108; 88305; 89051; 93005; 93306; 94640; 94799; 96374; 96375; 99223; 99232; 99233; 99238